=== PATIENT | female | born 1970 | race Caucasian/White ===

== ENCOUNTER → 2021-08-29 12:40 | Outpatient (BNVA) | payer OTHER, SELFPAY | PROVIDERS: PCP Physician Assistant Medical; Visit Provider Nurse Practitioner Family | DX: G43.009 Migraine without aura, not intractable, without status migrainosus (principal); G47.19 Other hypersomnia; R06.83 Snoring; Z79.899 Other long term (current) drug therapy | CPT/HCPCS: 99202 ==

== ENCOUNTER → 2021-09-23 13:48 | Outpatient (REF) | payer OTHER, SELFPAY | LOC: HO.SL 13:48 | PROVIDERS: PCP Physician Assistant Medical; Visit Provider Nurse Practitioner Family | DX: Z13.89 Encounter for screening for other disorder (principal) ==

== ENCOUNTER → 2021-10-22 13:49 | Outpatient (BNVA) | payer OTHER, SELFPAY | PROVIDERS: PCP Physician Assistant Medical; Visit Provider Nurse Practitioner Family | DX: G43.009 Migraine without aura, not intractable, without status migrainosus (principal); R06.83 Snoring; M54.2 Cervicalgia; R42 Dizziness and giddiness; Z79.899 Other long term (current) drug therapy | CPT/HCPCS: 99212 ==

== ENCOUNTER → 2022-08-13 09:03 | Outpatient (BNV) | payer OTHER, SELFPAY | PROVIDERS: Visit Provider Psychiatry & Neurology Psychiatry | DX: F33.2 Major depressive disorder, recurrent severe without psychotic features (principal); F41.1 Generalized anxiety disorder | CPT/HCPCS: 90867; 90868; 99204 ==

== ENCOUNTER 2023-01-15 09:00 | Outpatient (RCR) | payer OTHER, SELFPAY ==
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
--- NOTE | 2022-11-11 13:25 | P.PNPS_ITS ---
TMS Daily Progress Note Daily TMS Progress Note Date of Service: 11/11/22 Week #: 1 Treatment #(06-29): 1 PHQ-9 Pre-Treatment (06-26): 19 PHQ-9 Most Recent (06-26): 19 Reviewed: TMS Mapping/Re-mapping completed Verification: I have reviewed the TMS Legal Document Assistant Note and agree with the contents. The patient remains a candidate to continue TMS treatment per protocol. Assessment and Plan (1) Generalized anxiety disorder: Status: Acute (2) Major depressive disorder, recurrent severe without psychotic features: Status: Acute Plan Patient was somewhat anxious questions were answered informed consent obtained. Patient tolerated mapping and 1st treatment well MT 1.35 patient is aware of seizure risk Time Spent With Patient Time: Total time managing care of this patient today 50____ minutes.
--- NOTE | 2022-11-12 22:24 | P.PNPS_ITS ---
TMS Daily Progress Note Daily TMS Progress Note Date of Service: 11/12/22 Week #: 1 Treatment #(06-29): 2 PHQ-9 Pre-Treatment (06-26): 19 PHQ-9 Most Recent (06-26): 19 Reviewed: TMS Tech Note Reviewed Verification: I have reviewed the TMS Fish Farm Laborer Note and agree with the contents. The patient remains a candidate to continue TMS treatment per protocol. Assessment and Plan (1) Major depressive disorder, recurrent severe without psychotic features: Status: Acute Plan continue tx plan tolerating tx Time Spent With Patient Time: Total time managing care of this patient today ____ minutes.
--- NOTE | 2022-11-16 16:52 | P.PNPS_ITS ---
TMS Daily Progress Note Daily TMS Progress Note Date of Service: 11/13/22 Week #: 1 Treatment #(06-29): 3 PHQ-9 Pre-Treatment (06-26): 19 PHQ-9 Most Recent (06-26): 19 Reviewed: TMS Tech Note Reviewed Verification: I have reviewed the TMS Director Network Development Note and agree with the contents. The patient remains a candidate to continue TMS treatment per protocol. Assessment and Plan (1) Major depressive disorder, recurrent severe without psychotic features: Status: Acute Plan continue tx plan gradual inc MT % Time Spent With Patient Time: Total time managing care of this patient today ____ minutes.
--- NOTE | 2022-11-18 22:20 | HO.TMSDAILY2 ---
TMS Daily Progress Note Daily TMS Progress Note Date of Service: 11/16/22 Week #: 1 Treatment #(06-29): 4 PHQ-9 Pre-Treatment (06-26): 19 PHQ-9 Most Recent (06-26): 19 Reviewed: TMS Tech Note Reviewed Verification: I have reviewed the TMS Production Broaching Machine Operator Note and agree with the contents. The patient remains a candidate to continue TMS treatment per protocol. Assessment and Plan (1) Major depressive disorder, recurrent severe without psychotic features: Status: Acute (2) Generalized anxiety disorder: Status: Acute Plan difficulty tolerating pulses locally Time Spent With Patient Time: Total time managing care of this patient today ____ minutes.
--- NOTE | 2022-12-07 16:22 | P.PNPS_ITS ---
TMS Daily Progress Note Daily TMS Progress Note Date of Service: 11/17/22 Week #: 1 Treatment #(06-29): 5 PHQ-9 Pre-Treatment (06-26): 19 PHQ-9 Most Recent (06-26): 19 Reviewed: TMS Tech Note Reviewed Verification: I have reviewed the TMS Stave And Bolt Equalizer Note and agree with the contents. The patient remains a candidate to continue TMS treatment per protocol. Assessment and Plan (1) Major depressive disorder, recurrent severe without psychotic features: Status: Acute (2) Generalized anxiety disorder: Status: Acute Plan cont with local discomfort Time Spent With Patient Time: Total time managing care of this patient today ____ minutes.
--- NOTE | 2022-12-12 19:24 | P.PNPS_ITS ---
TMS Daily Progress Note Daily TMS Progress Note Date of Service: 11/18/22 Week #: 2 Treatment #(06-29): 6 PHQ-9 Pre-Treatment (06-26): 19 PHQ-9 Most Recent (06-26): 19 Reviewed: TMS Tech Note Reviewed Verification: I have reviewed the TMS Hydraulic Jack Mechanic Note and agree with the contents. The patient remains a candidate to continue TMS treatment per protocol. Assessment and Plan (1) Major depressive disorder, recurrent severe without psychotic features: Status: Acute (2) Generalized anxiety disorder: Status: Acute Plan cont tx local discomfort continues Time Spent With Patient Time: Total time managing care of this patient today ____ minutes.
--- NOTE | 2022-12-12 19:26 | P.PNPS_ITS ---
TMS Daily Progress Note Daily TMS Progress Note Date of Service: 11/19/22 Week #: 2 Treatment #(06-29): 7 PHQ-9 Pre-Treatment (06-26): 19 PHQ-9 Most Recent (06-26): 19 Reviewed: TMS Tech Note Reviewed Verification: I have reviewed the TMS Pipe Smoking Machine Operator Note and agree with the contents. The patient remains a candidate to continue TMS treatment per protocol. Assessment and Plan (1) Major depressive disorder, recurrent severe without psychotic features: Status: Acute (2) Generalized anxiety disorder: Status: Acute Plan cont tx local discomfort continues discussed option of remap Time Spent With Patient Time: Total time managing care of this patient today ____ minutes.
--- NOTE | 2022-12-12 19:28 | P.PNPS_ITS ---
TMS Daily Progress Note Daily TMS Progress Note Date of Service: 12/12/22 Week #: 2 Treatment #(06-29): 8 PHQ-9 Pre-Treatment (06-26): 19 PHQ-9 Most Recent (06-26): 19 Reviewed: TMS Tech Note Reviewed Verification: I have reviewed the TMS Gas Pumping Station Supervisor Note and agree with the contents. The patient remains a candidate to continue TMS treatment per protocol. Assessment and Plan (1) Major depressive disorder, recurrent severe without psychotic features: Status: Acute (2) Generalized anxiety disorder: Status: Acute Plan pain fatigue continues discussed option of remap Time Spent With Patient Time: Total time managing care of this patient today ____ minutes.
--- NOTE | 2022-12-12 21:26 | P.PNPS_ITS ---
TMS Daily Progress Note Daily TMS Progress Note Date of Service: 11/23/22 Week #: 2 Treatment #(06-29): 10 PHQ-9 Pre-Treatment (06-26): 16 PHQ-9 Most Recent (06-26): 15 Reviewed: TMS Mapping/Re-mapping completed Verification: I have reviewed the TMS Roll Shop Supervisor Note and agree with the contents. The patient remains a candidate to continue TMS treatment per protocol. Assessment and Plan (1) Major depressive disorder, recurrent severe without psychotic features: Status: Acute (2) Generalized anxiety disorder: Status: Acute Plan remapping completed pt feeling much more comfortable Time Spent With Patient Time: Total time managing care of this patient today ____ minutes.
--- NOTE | 2022-12-12 21:30 | HO.TMSDAILY2 ---
TMS Daily Progress Note Daily TMS Progress Note Date of Service: 11/24/22 Week #: 2 Treatment #(06-29): 10 PHQ-9 Pre-Treatment (06-26): 16 PHQ-9 Most Recent (06-26): 15 Reviewed: TMS Tech Note Reviewed Verification: I have reviewed the TMS Machinist Supervisor Note and agree with the contents. The patient remains a candidate to continue TMS treatment per protocol. Assessment and Plan (1) Major depressive disorder, recurrent severe without psychotic features: Status: Acute Plan pt tolerating tx has anxiety needs reassurance Time Spent With Patient Time: Total time managing care of this patient today ____ minutes.
--- NOTE | 2022-12-12 21:31 | HO.TMSDAILY2 ---
TMS Daily Progress Note Daily TMS Progress Note Date of Service: 11/25/22 Week #: 3 Treatment #(06-29): 11 PHQ-9 Pre-Treatment (06-26): 16 PHQ-9 Most Recent (06-26): 15 Reviewed: TMS Tech Note Reviewed Verification: I have reviewed the TMS Manager Primary Care Note and agree with the contents. The patient remains a candidate to continue TMS treatment per protocol. Assessment and Plan (1) Major depressive disorder, recurrent severe without psychotic features: Status: Acute Plan improved mood hopeful Time Spent With Patient Time: Total time managing care of this patient today ____ minutes.
--- NOTE | 2022-12-12 21:33 | HO.TMSDAILY2 ---
TMS Daily Progress Note Daily TMS Progress Note Date of Service: 11/26/22 Week #: 3 Treatment #(06-29): 12 PHQ-9 Pre-Treatment (06-26): 16 PHQ-9 Most Recent (06-26): 15 Reviewed: TMS Tech Note Reviewed Verification: I have reviewed the TMS Special Education Educational Assistant Note and agree with the contents. The patient remains a candidate to continue TMS treatment per protocol. Assessment and Plan (1) Generalized anxiety disorder: Status: Acute (2) Major depressive disorder, recurrent severe without psychotic features: Status: Acute Plan cont to feel improved Time Spent With Patient Time: Total time managing care of this patient today ____ minutes.
--- NOTE | 2022-12-12 21:35 | HO.TMSDAILY2 ---
TMS Daily Progress Note Daily TMS Progress Note Date of Service: 11/27/22 Week #: 3 Treatment #(06-29): 13 PHQ-9 Pre-Treatment (06-26): 16 PHQ-9 Most Recent (06-26): 15 Reviewed: TMS Tech Note Reviewed Verification: I have reviewed the TMS Dna Analyst Note and agree with the contents. The patient remains a candidate to continue TMS treatment per protocol. Assessment and Plan Time Spent With Patient Time: Total time managing care of this patient today ____ minutes.
--- NOTE | 2022-12-12 21:36 | HO.TMSDAILY2 ---
TMS Daily Progress Note Daily TMS Progress Note Date of Service: 11/30/22 Week #: 3 Treatment #(06-29): 14 PHQ-9 Pre-Treatment (06-26): 16 PHQ-9 Most Recent (06-26): 15 Reviewed: TMS Tech Note Reviewed Verification: I have reviewed the TMS Coremaker Supervisor Note and agree with the contents. The patient remains a candidate to continue TMS treatment per protocol. Assessment and Plan (1) Generalized anxiety disorder: Status: Acute (2) Major depressive disorder, recurrent severe without psychotic features: Status: Acute Plan difficulty in mt threshold tolerance Time Spent With Patient Time: Total time managing care of this patient today ____ minutes.
--- NOTE | 2022-12-12 21:39 | HO.TMSDAILY2 ---
TMS Daily Progress Note Daily TMS Progress Note Date of Service: 12/02/22 Week #: 3 Treatment #(06-29): 15 PHQ-9 Pre-Treatment (06-26): 16 PHQ-9 Most Recent (06-26): 15 Reviewed: TMS Tech Note Reviewed Verification: I have reviewed the TMS Varnish Thinner Note and agree with the contents. The patient remains a candidate to continue TMS treatment per protocol. Assessment and Plan (1) Generalized anxiety disorder: Status: Acute (2) Major depressive disorder, recurrent severe without psychotic features: Status: Acute Plan continue tx plan Time Spent With Patient Time: Total time managing care of this patient today ____ minutes.
--- NOTE | 2022-12-12 21:40 | P.PNPS_ITS ---
TMS Daily Progress Note Daily TMS Progress Note Date of Service: 12/04/22 Week #: 4 Treatment #(06-29): 16 PHQ-9 Pre-Treatment (06-26): 16 PHQ-9 Most Recent (06-26): 14 Reviewed: TMS Tech Note Reviewed Verification: I have reviewed the TMS Substation Inspector Note and agree with the contents. The patient remains a candidate to continue TMS treatment per protocol. Assessment and Plan (1) Generalized anxiety disorder: Status: Acute (2) Major depressive disorder, recurrent severe without psychotic features: Status: Acute Plan pt tolerating tx better Time Spent With Patient Time: Total time managing care of this patient today ____ minutes.
--- NOTE | 2022-12-12 21:43 | P.PNPS_ITS ---
TMS Daily Progress Note Daily TMS Progress Note Date of Service: 12/09/22 Week #: 4 Treatment #(06-29): 18 PHQ-9 Pre-Treatment (06-26): 16 PHQ-9 Most Recent (06-26): 14 Reviewed: TMS Tech Note Reviewed Verification: I have reviewed the TMS Document Control Specialist Note and agree with the contents. The patient remains a candidate to continue TMS treatment per protocol. Assessment and Plan (1) Generalized anxiety disorder: Status: Acute (2) Major depressive disorder, recurrent severe without psychotic features: Status: Acute Plan anxiety preoccupation re breast cancer Time Spent With Patient Time: Total time managing care of this patient today ____ minutes.
--- NOTE | 2022-12-12 21:45 | P.PNPS_ITS ---
TMS Daily Progress Note Daily TMS Progress Note Date of Service: 12/10/22 Week #: 4 Treatment #(06-29): 19 PHQ-9 Pre-Treatment (06-26): 16 PHQ-9 Most Recent (06-26): 14 Reviewed: TMS Tech Note Reviewed Verification: I have reviewed the TMS Radiation Oncologist Note and agree with the contents. The patient remains a candidate to continue TMS treatment per protocol. Assessment and Plan (1) Generalized anxiety disorder: Status: Acute (2) Major depressive disorder, recurrent severe without psychotic features: Status: Acute Plan inc stress with partner and worries re cancer Time Spent With Patient Time: Total time managing care of this patient today ____ minutes.
--- NOTE | 2022-12-12 21:47 | P.PNPS_ITS ---
TMS Daily Progress Note Daily TMS Progress Note Date of Service: 12/11/22 Week #: 4 Treatment #(06-29): 20 PHQ-9 Pre-Treatment (06-26): 16 PHQ-9 Most Recent (06-26): 14 Reviewed: TMS Tech Note Reviewed Verification: I have reviewed the TMS Yellow Pages Space Salesperson Note and agree with the contents. The patient remains a candidate to continue TMS treatment per protocol. Assessment and Plan (1) Generalized anxiety disorder: Status: Acute (2) Major depressive disorder, recurrent severe without psychotic features: Status: Acute Plan cont plan of care Time Spent With Patient Time: Total time managing care of this patient today ____ minutes.
--- NOTE | 2022-12-23 22:44 | P.PNPS_ITS ---
TMS Daily Progress Note Daily TMS Progress Note Date of Service: 12/23/22 Week #: 5 Treatment #(06-29): 21 PHQ-9 Pre-Treatment (06-26): 16 PHQ-9 Most Recent (06-26): 14 Reviewed: TMS Tech Note Reviewed Verification: I have reviewed the TMS Rockboard Lather Note and agree with the contents. The patient remains a candidate to continue TMS treatment per protocol. Assessment and Plan (1) Generalized anxiety disorder: Status: Acute (2) Major depressive disorder, recurrent severe without psychotic features: Status: Acute Plan cont plan of care ? remap Time Spent With Patient Time: Total time managing care of this patient today ____ minutes.
--- NOTE | 2022-12-23 22:49 | P.PNPS_ITS ---
TMS Daily Progress Note Daily TMS Progress Note Date of Service: 12/15/22 Week #: 5 Treatment #(06-29): 22 PHQ-9 Pre-Treatment (06-26): 16 PHQ-9 Most Recent (06-26): 14 Reviewed: TMS Tech Note Reviewed Verification: I have reviewed the TMS Division Sales Manager Note and agree with the contents. The patient remains a candidate to continue TMS treatment per protocol. Assessment and Plan (1) Generalized anxiety disorder: Status: Acute (2) Major depressive disorder, recurrent severe without psychotic features: Status: Acute Plan cont plan of care ? remap lot of relational issues Time Spent With Patient Time: Total time managing care of this patient today ____ minutes.
--- NOTE | 2022-12-23 22:58 | HO.TMSDAILY2 ---
TMS Daily Progress Note Daily TMS Progress Note Date of Service: 12/16/22 Week #: 5 Treatment #(06-29): 23 PHQ-9 Pre-Treatment (06-26): 16 PHQ-9 Most Recent (06-26): 14 Reviewed: TMS Tech Note Reviewed Verification: I have reviewed the TMS Sign Language Instructor Note and agree with the contents. The patient remains a candidate to continue TMS treatment per protocol. Assessment and Plan Time Spent With Patient Time: Total time managing care of this patient today ____ minutes.
--- NOTE | 2022-12-23 23:03 | HO.TMSDAILY2 ---
TMS Daily Progress Note Daily TMS Progress Note Date of Service: 12/17/22 Week #: 5 Treatment #(06-29): 24 PHQ-9 Pre-Treatment (06-26): 16 PHQ-9 Most Recent (06-26): 14 Reviewed: TMS Tech Note Reviewed Verification: I have reviewed the TMS Project Estimator Note and agree with the contents. The patient remains a candidate to continue TMS treatment per protocol. Assessment and Plan (1) Major depressive disorder, recurrent severe without psychotic features: Status: Acute Plan Question some improvement noted Time Spent With Patient Time: Total time managing care of this patient today ____ minutes.
--- NOTE | 2022-12-23 23:05 | P.PNPS_ITS ---
TMS Daily Progress Note Daily TMS Progress Note Date of Service: 12/18/22 Week #: 5 Treatment #(06-29): 25 PHQ-9 Pre-Treatment (06-26): 16 PHQ-9 Most Recent (06-26): 14 Reviewed: TMS Tech Note Reviewed Verification: I have reviewed the TMS Certified First Assistant Note and agree with the contents. The patient remains a candidate to continue TMS treatment per protocol. Assessment and Plan (1) Major depressive disorder, recurrent severe without psychotic features: Status: Acute Plan cont plan of care Time Spent With Patient Time: Total time managing care of this patient today ____ minutes.
--- NOTE | 2022-12-23 23:07 | P.PNPS_ITS ---
TMS Daily Progress Note Daily TMS Progress Note Date of Service: 12/21/22 Week #: 6 Treatment #(06-29): 26 PHQ-9 Pre-Treatment (06-26): 16 PHQ-9 Most Recent (06-26): 14 Reviewed: TMS Tech Note Reviewed Verification: I have reviewed the TMS Weblogic Administrator Note and agree with the contents. The patient remains a candidate to continue TMS treatment per protocol. Assessment and Plan (1) Generalized anxiety disorder: Status: Acute (2) Major depressive disorder, recurrent severe without psychotic features: Status: Acute Plan Tends to be flooded with stress Time Spent With Patient Time: Total time managing care of this patient today ____ minutes.
--- NOTE | 2022-12-31 11:31 | HO.TMSDAILY2 ---
TMS Daily Progress Note Daily TMS Progress Note Date of Service: 12/22/22 Week #: 6 Treatment #(06-29): 27 PHQ-9 Pre-Treatment (06-26): 16 PHQ-9 Most Recent (06-26): 15 Reviewed: TMS Tech Note Reviewed Verification: I have reviewed the TMS Nail Puller Note and agree with the contents. The patient remains a candidate to continue TMS treatment per protocol. Assessment and Plan (1) Major depressive disorder, recurrent severe without psychotic features: Status: Acute (2) Generalized anxiety disorder: Status: Acute Plan Tends to be flooded with stress patient anxious and ruminating Time Spent With Patient Time: Total time managing care of this patient today ____ minutes.
--- NOTE | 2022-12-31 11:34 | P.PNPS_ITS ---
TMS Daily Progress Note Daily TMS Progress Note Date of Service: 12/24/22 Week #: 6 Treatment #(06-29): 28 PHQ-9 Pre-Treatment (06-26): 16 PHQ-9 Most Recent (06-26): 15 Reviewed: TMS Tech Note Reviewed Verification: I have reviewed the TMS Cluster Bore Operator Note and agree with the contents. The patient remains a candidate to continue TMS treatment per protocol. Assessment and Plan (1) Major depressive disorder, recurrent severe without psychotic features: Status: Acute Plan Patient unfortunately continues with obsessional anxiety no adverse effects noted has has a lot of post cancer anxiety Time Spent With Patient Time: Total time managing care of this patient today ____ minutes.
--- NOTE | 2022-12-31 11:36 | P.PNPS_ITS ---
TMS Daily Progress Note Daily TMS Progress Note Date of Service: 12/31/22 Week #: 6 Treatment #(06-29): 29 PHQ-9 Pre-Treatment (06-26): 16 PHQ-9 Most Recent (06-26): 16 Reviewed: TMS Tech Note Reviewed Verification: I have reviewed the TMS Administrative Technician Note and agree with the contents. The patient remains a candidate to continue TMS treatment per protocol. Assessment and Plan (1) Major depressive disorder, recurrent severe without psychotic features: Status: Acute Plan Patient unfortunately continues with obsessional anxiety no adverse effects noted has has a lot of post cancer anxiety Time Spent With Patient Time: Total time managing care of this patient today ____ minutes.
--- NOTE | 2022-12-31 11:38 | P.PNPS_ITS ---
TMS Daily Progress Note Daily TMS Progress Note Date of Service: 12/30/22 Week #: 6 Treatment #(06-29): 30 PHQ-9 Pre-Treatment (06-26): 16 PHQ-9 Most Recent (06-26): 16 Reviewed: TMS Tech Note Reviewed Verification: I have reviewed the TMS Survey Cad Technician Note and agree with the contents. The patient remains a candidate to continue TMS treatment per protocol. Assessment and Plan (1) Major depressive disorder, recurrent severe without psychotic features: Status: Acute (2) Generalized anxiety disorder: Status: Acute Plan Patient has a lot of some situational stress obsessional anxiety no adverse treatment effects noted we will review with patient alternatives if this not effective Time Spent With Patient Time: Total time managing care of this patient today ____ minutes.
--- NOTE | 2023-01-05 11:32 | HO.TMSDAILY2 ---
TMS Daily Progress Note Daily TMS Progress Note Date of Service: 01/01/23 Week #: 7 Treatment #(06-29): 31 PHQ-9 Pre-Treatment (06-26): 16 PHQ-9 Most Recent (06-26): 16 Reviewed: TMS Tech Note Reviewed Verification: I have reviewed the TMS Electroencephalograph Technician Note and agree with the contents. The patient remains a candidate to continue TMS treatment per protocol. Assessment and Plan (1) Generalized anxiety disorder: Status: Acute (2) Major depressive disorder, recurrent severe without psychotic features: Status: Acute Plan Tolerating treatment seems improved but PHQ-9 has not changed Time Spent With Patient Time: Total time managing care of this patient today ____ minutes.
--- NOTE | 2023-01-05 11:33 | HO.TMSDAILY2 ---
TMS Daily Progress Note Daily TMS Progress Note Date of Service: 01/04/23 Week #: 7 Treatment #(06-29): 32 PHQ-9 Pre-Treatment (06-26): 16 PHQ-9 Most Recent (06-26): 15 Reviewed: TMS Tech Note Reviewed Verification: I have reviewed the TMS Resident Physician In Radiology Note and agree with the contents. The patient remains a candidate to continue TMS treatment per protocol. Assessment and Plan (1) Major depressive disorder, recurrent severe without psychotic features: Status: Acute Plan Grant affect seems improved no complaints of side effects but has been somewhat discouraged Time Spent With Patient Time: Total time managing care of this patient today ____ minutes.
--- NOTE | 2023-01-15 15:18 | P.PNPS_ITS ---
TMS Daily Progress Note Daily TMS Progress Note Date of Service: 01/06/23 Week #: 7 Treatment #(06-29): 33 PHQ-9 Pre-Treatment (06-26): 16 PHQ-9 Most Recent (06-26): 15 Reviewed: TMS Tech Note Reviewed Verification: I have reviewed the TMS Doctor Naturopathic Note and agree with the contents. The patient remains a candidate to continue TMS treatment per protocol. Assessment and Plan (1) Major depressive disorder, recurrent severe without psychotic features: Status: Acute (2) Generalized anxiety disorder: Status: Acute Plan LOT OF SITUATIONAL FACTORS IN THE PATIENT'S LIFE DIFFICULT TO REBOUND GIVEN CURRENT STRESSORS NO IMPROVEMENT NOTED TO THIS POINT BY THE PATIENT Time Spent With Patient Time: Total time managing care of this patient today ____ minutes.
--- NOTE | 2023-01-15 15:22 | P.PNPS_ITS ---
TMS Daily Progress Note Daily TMS Progress Note Date of Service: 01/08/23 Week #: 8 Treatment #(06-29): 34 PHQ-9 Pre-Treatment (06-26): 16 PHQ-9 Most Recent (06-26): 15 Reviewed: TMS Tech Note Reviewed Verification: I have reviewed the TMS Digital Performance Analyst Note and agree with the contents. The patient remains a candidate to continue TMS treatment per protocol. Assessment and Plan (1) Generalized anxiety disorder: Status: Acute (2) Major depressive disorder, recurrent severe without psychotic features: Status: Acute Plan PATIENT WITH SIGNIFICANT FAMILY STRESSORS MAKING STABILITY QUITE DIFFICULT Time Spent With Patient Time: Total time managing care of this patient today ____ minutes.
--- NOTE | 2023-01-15 15:25 | HO.TMSDAILY2 ---
TMS Daily Progress Note Daily TMS Progress Note Date of Service: 01/13/23 Week #: 8 Treatment #(06-29): 35 PHQ-9 Pre-Treatment (06-26): 16 PHQ-9 Most Recent (06-26): 15 Reviewed: TMS Tech Note Reviewed Verification: I have reviewed the TMS Station Engineer Chief Note and agree with the contents. The patient remains a candidate to continue TMS treatment per protocol. Assessment and Plan (1) Generalized anxiety disorder: Status: Acute (2) Major depressive disorder, recurrent severe without psychotic features: Status: Acute Plan CONTINUES WITH MARKED STRESSORS MEDICAL AND SITUATIONAL FAMILY MONTALVO Time Spent With Patient Time: Total time managing care of this patient today ____ minutes.
--- NOTE | 2023-01-25 15:44 | HO.TMSDAILY2 ---
TMS Daily Progress Note Daily TMS Progress Note Date of Service: 01/15/23 Week #: 8 Treatment #(-30): 36 PHQ-9 Pre-Treatment (-): 16 PHQ-9 Most Recent (06-26): 13 VICK-7 Pre-Treatment (0-21): 15 VICK-7 Most Recent (0-): 17 Reviewed: TMS Tech Note Reviewed Verification: I have reviewed the TMS Supervisor Tunnel Heading Note and agree with the contents. The patient remains a candidate to continue TMS treatment per protocol. Assessment and Plan Time Spent With Patient Time: Total time managing care of this patient today ____ minutes.
== END 2023-01-18 11:41 | disposition home or self-care (01) ==
LOC: HO.PTMS 09:00
PROVIDERS: Visit Provider Psychiatry & Neurology Psychiatry
DX: F33.2 Major depressive disorder, recurrent severe without psychotic features (principal); F41.1 Generalized anxiety disorder
CPT/HCPCS: 90867; 90868; 90869

== ENCOUNTER → 2023-01-15 09:00 | Outpatient (BNV) | payer OTHER, SELFPAY | PROVIDERS: Visit Provider Psychiatry & Neurology Psychiatry | DX: F33.2 Major depressive disorder, recurrent severe without psychotic features (principal) | CPT/HCPCS: 90868 ==

== ENCOUNTER 2024-04-03 09:50 | Outpatient (AMB) | payer OTHER, SELFPAY ==
--- NOTE | 2024-04-03 09:51 | MHC.OFFVIS ---
Vital Signs 04/03/24 09:54 Height 5 ft 6 in Weight 145 lb BMI 23.4 BP 102/70 Blood Pressure Location Rt brachial Position Sitting Pulse 64 Pulse Source Pulse Oximeter Pulse Oximetry (%) 95 Oxygen Delivery Method Room Air Intake Visit Reasons: Follow up Principal Technologist Required: No Accompanied by: Self / Same As Patient Allergies niacin Allergy (Unknown, Verified 04/03/24 09:54) Unknown HPI Comments Details: 53 yo female presents for Migraine follow up. She was having increased neck pain, reduced cervical ROM, and migraines- she is unsure exactly what triggered this. However, her neck pain and migraine attacks have subsided following a cervical corticosteroid injection injection by air analysis technician Dr. Francois paredes. She can turn her neck now, though still has some difficulty with ROM to the left. MRI was normal. Her last headache was 2 weeks ago lasted 30 min with auras, light and sound sensitivity, vision changes and nausea. Denies vomiting, vertigo, spasm, numbness or tingling. Anxiety, controlled with Lorazepam, and Wellbutrin. She is compliant w/ Ajovy and tolerating it well. Uses her triptan w/ good effect- notes that she has some older triptans at home, so is not exactly sure which triptan is most effective and well-tolerated for her. 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 Depression HLD (hyperlipidemia) Hypothyroidism Surgical History History of back surgery Social History Alcohol intake: current Alcohol type: wine Patient Tobacco Use Status: Never used Tobacco Review of Systems Const Reports as per HPI ENT Reports neck pain Musc Reports neck pain Physical Exam Vital Signs: Last Vital Signs Pulse 64 04/03/24 09:54 BP 102/70 04/03/24 09:54 Pulse Ox 95 04/03/24 09:54 Oxygen Delivery Method Room Air 04/03/24 09:54 BMI result Body Mass Index 23.4 Const General: cooperative, healthy appearing and comfortable Nutritional Appearance: average body habitus Orientation/consciousness: patient oriented x3 Eyes General: appearance normal, both eyes and all related structures Pupils: Equal, round and reactive pupils present, Pupils normal by confrontation and Pupil accommodation reflex normal Neck Neck: Yes normal visual inspection and Yes full ROM (Difficulty with turning the head to the left.) Resp Effort & Inspection: normal respiratory effort and able to speak in complete sentences Neuro Other: Bilateral posterior cervical tightness. Negative Spurling. General: patient oriented x3, moves all extremities and CN's II-XI intact bilaterally Cranial nerves: Yes Equal, round and reactive pupils present Motor exam (neuro): 5/5 motor strength present throughout Deep tendon reflexes (DTR's): Right triceps reflex intensity grade: 2+, Left triceps reflex intensity grade: 2+, Rt Biceps (C5, C6): 2+, Left biceps reflex intensity grade: 2+, Right brachioradialis reflex intensity grade: 2+, Left brachioradialis reflex intensity grade: 2+, Right patellar reflex intensity grade: 2+, Left patellar reflex intensity grade: 2+, Right ankle reflex intensity grade: 2+ and Left ankle reflex intensity grade: 2+ Coordination: [id number] test normal Psych Appearance: grossly normal Mental Status: mental status grossly normal Speech and movement: Normal speech and movement present Assessment & Plan Assessment & Plan (1) Migraine without aura: Code(s): G43.009 - Migraine without aura, not intractable, without status migrainosus Category: Medical Qualifiers: Intractability: not intractable Status migrainosus presence: without status migrainosus Qualified Code(s): G43.009 - Migraine without aura, not intractable, without status migrainosus (2) Generalized anxiety disorder: Code(s): F41.1 - Generalized anxiety disorder Category: Medical Plan: Continue taking Lorazepam 1 mg BID PRN Continue taking Wellbutrin 300 mg PO QAM Lifestyle changes, such as exercise, walking, meditation, music and yoga, along with essential oils can be helpful modalities for episodes of panic attacks. Plan For acute migraine tx: Continue taking Zolmitriptan 5mg prn, max dose 2 tabs per day. Continue to take the cyclobenzaprine 10 mg PO Q8H PRN for cervical tightness. Previous acute migraine tx: Sumatriptan ineffective. Rizatriptan- ineffective. For migraine prevention tx:. Continue Ajovy 140mg sc q month. Continue with Magnesium, 400 mg PO Bedtime. Previous migraine prevention tx trials- amitriptyline, propranolol, gabapentin, topiramate- all ineffective at therapeutic doses for > 8 weeks. Future considerations- PT if cervical s/s worsen. Pt to follow-up in 6 months or sooner prn. Case, plan, and documentation reviewed, edited, and discussed with Herve Eaton PA by myself ELIEZER Dickinson. Medical decision making completed by myself, ELIEZER Dickinson. Coding Level of Care Code Est Pt Level 4 (44208) Diagnoses Migraine without aura and without status migrainosus, not intractable G43.009 Intractability: not intractable Status migrainosus presence: without status migrainosus Generalized anxiety disorder F41.1
[2024-04-03 09:54] VITALS: BP 102/70; PULSE 64; O2SAT 95; BMI 23.4
== END 2024-04-03 10:42 | disposition home or self-care (01) ==
PROVIDERS: Visit Provider Physician Assistant Medical
DX: G43.009 Migraine without aura, not intractable, without status migrainosus (principal); F41.1 Generalized anxiety disorder
CPT/HCPCS: 99214

== ENCOUNTER → 2024-04-03 09:50 | Outpatient (BNVA) | payer OTHER, SELFPAY | PROVIDERS: Visit Provider Nurse Practitioner Family | DX: G43.009 Migraine without aura, not intractable, without status migrainosus (principal); F41.1 Generalized anxiety disorder | CPT/HCPCS: 99212 ==